=== PATIENT | male | born 1965 | race Caucasian/White ===

== ENCOUNTER 2018-06-02 06:32 | Day surgery (SDC) | payer BC ==
[2018-06-02] VITALS (14 sets, daily range): BP systolic 136–164; BP diastolic 69–114; PULSE 64–77; RESP 12–22; Ht 188 cm; Wt 93.1 kg
[~2018-06-02] VITALS: Ht 188 cm; Wt 93.1 kg
[~2018-06-02 06:32] MED LIST: CEFAZOLIN 2 GM/50 ML (PMX) 50 ML IVPB SCH; SOD CHLORIDE 0.9% 1,000 ML IV SCH
[2018-06-02] MEDS ORDERED: BUPIVACAINE 0.25% (MPF) 30 ML INJ ONE (08:38)
[2018-06-02] MEDS ORDERED: POLYMYXIN/BACITRACIN 1L IRRIG ONE (08:38)
--- NOTE | 2018-06-02 08:54 | PREAC ---
Date/Time of Note Date/Time of Note DATE: 06/02/18 TIME: 08:52 Anesthesia Eval and Record Evaluation Time Pre-Procedure Interview DATE: 06/02/18 TIME: 08:52 Age 53 Sex male NPO: 8 hrs Preoperative diagnosis Lt inguinal Hernia Planned procedure Lt inguinal Hernia repair Past Medical History Past Medical History: None Surgery & Anesthesia Issues No known issue Meds Anticoagulation: No Beta Hortensia within 24 hr: No Reason Beta Hortensia not given: Pt. not on B-Hortensia No Active Prescriptions or Reported Meds Current Medications Cefazolin Sodium/ Dextrose 50 ml @ 100 mls/hr ONCE IVPB ; Start 06/02/18 at 06:00; Stop 06/02/18 at 13:00 Sodium Chloride 1,000 ml @ 75 mls/hr [id number] IV ; Start 06/02/18 at 06:00; Stop 06/02/18 at 23:00 Meds reviewed: Yes Allergies Coded Allergies: No Known Allergies (Verified Allergy, Unknown, 06/02/18) Allergies Reviewed: Yes Labs/Studies Labs Reviewed: Reviewed by anesthesiologist test: N/A Studies: ECG Pre-procedure Exam Last vitals Vital Signs Date Temp Pulse Resp B/P (MAP) Pulse Ox O2 O2 Flow FiO2 Time Delivery Rate 06/02/18 98.0 71 16 136/95 96 Room Air 07:35 (109) Airway: Adequate mouth opening, Adequate thyromental dist Mallampati: Mallampati II Teeth: Normal Lung: Normal Heart: Normal ASA Physical Status ASA physical status: 2 Emergency: None Planned Anesthetic General/MAC: LMA Planned Pain Management Parenteral pain med, Local by surgeon Pre-operative Attestations Prior to commencing anesthesia and surgery, the patient was re-evaluated, there was verification of: *The patient's identity *The results of appropriate recent lab work and preoperative vital signs *The above evaluation not changing prior to induction *Anesthetic plan, risk benefits, alternative and complications discussed with patient/family; questions answered; patient/family understands, accepts and wishes to proceed. YUE SANCHEZ MD Jun 02, 2018 08:54
[2018-06-02] MEDS ORDERED: MIDAZOLAM 1 MG/ML 2 ML INJ ONE (08:57)
[2018-06-02] MEDS ORDERED: LIDOCAINE 2% (SDV) 5 ML INJ ONE (10:05)
[2018-06-02] MEDS ORDERED: CEFAZOLIN 1 GM INJ ONE (10:05)
[2018-06-02] MEDS ORDERED: NEOSTIGMINE 3 MG/3 ML SYRINGE ONE (10:05)
[2018-06-02] MEDS ORDERED: GLYCOPYRROLATE 0.4 MG INJ ONE (10:05)
[2018-06-02] MEDS ORDERED: ROCURONIUM 50 MG INJ ONE (10:05)
[2018-06-02] MEDS ORDERED: PROPOFOL 20 ML ONE (10:05)
[2018-06-02] MEDS ORDERED: ONDANSETRON 4 MG INJ ONE (10:06)
--- NOTE | 2018-06-02 10:11 | OPR ---
Date/Time of Note Date/Time of Note DATE: 06/02/18 TIME: 10:06 Operative Report Procedure Date: Jun 02, 2018 Preoperative Diagnosis incarcerated large left inguinal hernia Postoperative Diagnosis same Operation/Procedure Performed 1. open incarcerated large left inguinal hernia repair with large ultrapro plug mesh 2. therapeutic injection of subcutaneous local anesthesia Surgeon see signature line Pillow Filler none Anesthesia Type: general Estimated Blood Loss: 0 - 10 ml's Transfusion none Specimen hernia sac Grafts/Implants none Complications none Pt Condition Post Procedure: stable Indications This is a 53-year-old male with a very large incarcerated left inguinal hernia. He requires surgical repair. Risks alternatives benefits and percent were discussed the patient. Patient expressed understanding and consents to the operation. Procedure Description Patient is taken to the OR and prepped and draped in usual sterile fashion. Surgical time was performed. IV antibiotics given. Left inguinal oblique incision was made with a 10 blade. Dissection with cautery was carried onto the axillary fascia. Externally fascia was opened with a 15 blade. The external fascia was attenuated and weakened. Very large incarcerated indirect hernia was identified. Extensive lysis of adhesions was performed and the hernia was then manually reduced. The very large indirect hernia sac is identified. The hernia sac was opened and all contents were then reduced manually. 0 Vicryl suture ligature was placed at the base of the hernia sac and the hernia sac was emptied of all of its contents prior to suture ligature placement. Excess hernia sac was then excised and sent for specimen. The disc portion was then used to bolster the hernia defect running 0 Prolene from the pubic tubercle along the shelving single limit. Superiorly the disc is secured to the internal oblique with interrupted 3-0 Vicryl. Onlay mesh was secured in a similar fashion with a running 0 Prolene from the pubic tubercle along the shelving is a single limit. Straps are created reapproximate around the cord structures to re-create the inguinal ring with interrupted 0 Prolene. Onlay mesh was secured to enter oblique with interrupted 3-0 Vicryl. Externally fascia is closed with running 3-0 Vicryl. Multiple interrupted 3-0 Vicryl were used to close Ash's fascia. Skin was closed using inzorb observable skin stapler. Therapeutic contains local anesthesia injected at the incision site. Dry dressings were applied. Alfredito ZIMMER Jun 02, 2018 10:11
--- NOTE | 2018-06-02 10:22 | PAC ---
Date/Time of Note Date/Time of Note DATE: 06/02/18 TIME: 10:21 Post-Anesthesia Notes Post-Anesthesia Note Last documented vital signs Vital Signs Date Temp Pulse Resp B/P (MAP) Pulse Ox O2 O2 Flow FiO2 Time Delivery Rate 06/02/18 98.0 71 16 136/95 96 Room Air 07:35 (109) Activity: WNL Respiratory function: WNL Cardiovascular function: WNL Mental status: Baseline Pain reasonably controlled: Yes Hydration appropriate: Yes Nausea/Vomiting absent: Yes Comments BP:112/45, P:78, Spo2:100%, T:98,8 YUE SANCHEZ MD Jun 02, 2018 10:22
[2018-06-02] MEDS ORDERED: METOCLOPRAMIDE 10 MG INJ IV PRN (10:30)
[2018-06-02] MEDS ORDERED: DIPHENHYDRAMINE 50 MG INJ IV PRN (10:30)
[2018-06-02] MEDS ORDERED: ONDANSETRON 4 MG INJ IV PRN (10:30)
[2018-06-02] MEDS ORDERED: HYDROmorphONE 1 MG/5 ML IV SYRINGE IV PRN (10:30)
[2018-06-02] MEDS ORDERED: MEPERIDINE 25 MG INJ IV PRN (10:30)
[2018-06-02] MEDS ORDERED: FENTAnyl 50 MCG/ML VIAL IV PRN (10:30)
[2018-06-02] MEDS ORDERED: HYDROCODONE/APAP (5/325) TAB PO ONE (10:30)
[2018-06-02] MEDS: HYDROmorphONE 1 MG/5 ML IV SYRINGE IV PRN ×2 (10:33→10:44)
== END 2018-06-02 16:15 | disposition home or self-care (01) ==
LOC: SDS 06:32
PROVIDERS: ATTEND Surgery
DX: K40.30 Unilateral inguinal hernia, with obstruction, without gangrene, not specified as recurrent (principal)
CPT/HCPCS: 49507; 88302; C1781; J0690; J1170; J2175; J2250; J2405; J2710; J3010; Z7512; Z7610

== ENCOUNTER 2018-08-15 10:26 | Day surgery (SDC) | payer BC ==
[2018-08-14 14:57] VITALS: BMI 26.4
[2018-08-15] VITALS (11 sets, daily range): BP systolic 141–161; BP diastolic 76–102; PULSE 58–71; RESP 14–20; Ht 188 cm; Wt 96.8 kg
[~2018-08-15] VITALS: Ht 188 cm; Wt 96.8 kg
--- NOTE | 2018-08-15 11:36 | RADRPT ---
Vent Rate: 63 bpm RR Interval: 948 msec [place] Interval: 164 msec QRS Duration: 88 msec QT Interval: 407 msec QTC Interval: 418 msec P-R-T [place]: 63 - 70 - 70 degrees Sinus rhythm...normal P axis, V-rate 50- 99 ST elev, probable normal early repol pattern...ST elevation, age<55 Electronically Signed By: Vinayak Liang
[2018-08-15] MEDS ORDERED: CEFAZOLIN 2 GM/50 ML (PMX) 50 ML IVPB ONE (12:00)
[2018-08-15] MEDS ORDERED: SOD CHLORIDE 0.9% 1,000 ML IV SCH (12:00)
[2018-08-15] MEDS ORDERED: NEOSTIGMINE 3 MG/3 ML SYRINGE ONE (12:32)
[2018-08-15] MEDS ORDERED: PROPOFOL 20 ML ONE (12:32)
[2018-08-15] MEDS ORDERED: ROCURONIUM 50 MG INJ ONE (12:32)
[2018-08-15] MEDS ORDERED: MIDAZOLAM 1 MG/ML 2 ML INJ ONE (12:32)
[2018-08-15] MEDS ORDERED: CEFAZOLIN 1 GM INJ ONE (12:32)
[2018-08-15] MEDS ORDERED: GLYCOPYRROLATE 0.4 MG INJ ONE (12:32)
[2018-08-15] MEDS ORDERED: FENTAnyl 50 MCG/ML VIAL ONE (12:32)
[2018-08-15] MEDS ORDERED: DEXAMETHASONE 4 MG/ML 5 ML INJ ONE (12:33)
[2018-08-15] MEDS ORDERED: ONDANSETRON 4 MG INJ ONE (12:33)
[2018-08-15] MEDS ORDERED: BUPIVACAINE 0.25% (MPF) 30 ML INJ ONE (13:02)
--- NOTE | 2018-08-15 13:06 | PREAC ---
Date/Time of Note Date/Time of Note DATE: 08/15/18 TIME: 13:03 Anesthesia Eval and Record Evaluation Time Pre-Procedure Interview DATE: 08/15/18 TIME: 13:03 Age 53 Sex male NPO: 8 hrs Preoperative diagnosis RIGHT INGUINAL HERNIA Planned procedure OPEN RIGHT INGUINAL HERNIA REPAIR WITH MESH Past Medical History Past Medical History: None Surgery & Anesthesia Issues No known issue Meds Anticoagulation: No Beta Hortensia within 24 hr: No Reason Beta Hortensia not given: Pt. not on B-Hortensia No Active Prescriptions or Reported Meds Current Medications Sodium Chloride 1,000 ml @ 75 mls/hr [id number] IV Last administered on 08/15/18at 11:34; Admin Dose 75 MLS/HR; Start 08/15/18 at 12:00; Stop 08/16/18 at 01:19 Meds reviewed: Yes Allergies Coded Allergies: No Known Allergies (Verified Allergy, Unknown, 08/15/18) Allergies Reviewed: Yes Labs/Studies Labs Reviewed: Reviewed by anesthesiologist Result Diagram: 08/15/18 1137 08/15/18 1137 Laboratory Tests 08/15/18 11:37 test: N/A Pre-procedure Exam Last vitals Vital Signs Date Temp Pulse Resp B/P (MAP) Pulse Ox O2 O2 Flow FiO2 Time Delivery Rate 08/15/18 98.0 71 16 143/97 98 Room Air 11:37 (112) Airway: Adequate mouth opening, Adequate thyromental dist Mallampati: Mallampati II Teeth: Abnormal (CHIPPED UPPER INCISORS) Lung: Normal Heart: Normal ASA Physical Status ASA physical status: 1 Emergency: None Planned Anesthetic General/MAC: ETT Nerve block: TAP (right) Pre-operative Attestations Prior to commencing anesthesia and surgery, the patient was re-evaluated, there was verification of: *The patient's identity *The results of appropriate recent lab work and preoperative vital signs *The above evaluation not changing prior to induction *Anesthetic plan, risk benefits, alternative and complications discussed with patient/family; questions answered; patient/family understands, accepts and wishes to proceed. Samuel Payne M.D. Aug 15, 2018 13:06
[2018-08-15] MEDS ORDERED: FENTAnyl 50 MCG/ML VIAL IV PRN ×3 (13:30)
[2018-08-15] MEDS ORDERED: TRIMETHOBENZAMIDE 100 MG/ML VIAL IM PRN (13:30)
[2018-08-15] MEDS ORDERED: EPHEDrine 25 MG/5 ML SYG IV PRN (13:30)
[2018-08-15] MEDS ORDERED: LABETALOL HCL 20MG INJ IV PRN (13:30)
[2018-08-15] MEDS ORDERED: IPRATROPIUM (NEB) 0.5 MG/2.5 ML AMP HHN PRN (13:30)
[2018-08-15] MEDS ORDERED: ONDANSETRON 4 MG INJ IV PRN (13:30)
[2018-08-15] MEDS ORDERED: HYDROmorphONE 1 MG/5 ML IV SYRINGE IV PRN ×3 (13:30)
[2018-08-15] MEDS ORDERED: OXYCODONE/ACETAMINOPHEN (5/325) TAB PO PRN ×2 (13:30)
[2018-08-15] MEDS ORDERED: hydrALAzine 20 MG INJ IV PRN (13:30)
[2018-08-15] MEDS ORDERED: DIPHENHYDRAMINE 50 MG INJ IV PRN (13:30)
[2018-08-15] MEDS ORDERED: MEPERIDINE 25 MG INJ IV PRN (13:30)
[2018-08-15] MEDS ORDERED: MIDAZOLAM 1 MG/ML 2 ML INJ IV PRN (13:30)
[2018-08-15] MEDS ORDERED: ROPIVACAINE 0.5 % 30 ML VIAL ONE (13:30)
[2018-08-15] MEDS ORDERED: ALBUTEROL 0.083% (NEB) 2.5 MG/3 ML AMP HHN PRN (13:30)
[2018-08-15] MEDS ORDERED: POLYMYXIN/BACITRACIN 1L IRRIG IRR ONE (13:52)
[2018-08-15] MEDS ORDERED: POLYMYXIN/BACITRACIN 1L IRRIG ONE (14:03)
--- NOTE | 2018-08-15 14:22 | OPR ---
Date/Time of Note Date/Time of Note DATE: 08/15/18 TIME: 14:17 Operative Report Procedure Date: Aug 15, 2018 Preoperative Diagnosis incarcerated right inguinal hernia Postoperative Diagnosis same Operation/Procedure Performed open right incarcerated inguinal hernia repair with large ultrapro hernia system mesh Surgeon see signature line Inpatient Auditor none Anesthesia Type: general Estimated Blood Loss: 0 - 10 ml's Transfusion none Specimen none Grafts/Implants none Complications none Pt Condition Post Procedure: stable Indications This is a 53-year-old male with a very large right incarcerated inguinal hernia. He request surgical repair. Risks alternatives benefits and personal were discussed the patient. Patient expressed understanding and consents to the operation. Procedure Description Patient is taken to the OR and prepped and draped in usual sterile fashion. Surgical time was performed. IV antibiotics given. Right inguinal oblique incision made with a 10 blade. Dissection with cautery skin onto the fascia. Externally fascia up with a 15 blade. This incision extended medial fairly lateral sparely with Metzenbaum scissors. Cord structures identified encircled with a Franklin drain. Very large indirect incarcerated inguinal hernia was identified. Lysis of adhesions was performed and this large incarcerated hernia is then reduced. Hernia defect was then bolstered with the disc portion of the ultra pro hernia system mesh. The disc is secured in place the running Prolene from the pubic tubercle along the shelving single limit. Superiorly the disc is secured to enter oblique with interrupted 3-0 Vicryl. Onlay mesh was secured in a similar fashion with a running 0 Prolene from the pubic tubercle along the shelving of the inguinal ligament. Straps are created reapproximate around the cord structures and secured with interrupted 0 Prolene to recreate the inguinal ring. Onlay mesh secured to enter oblique with interrupted 3-0 Vicryl. Sterilely fascia is closed with running 3-0 Vicryl. Ash's fascia was closed with interrupted 0 Vicryl. Skin is closed using inzorb observable skin stapler. A tap block was provided with anesthesia at the beginning the case. Steri- Strips and dry dressings were applied. Alfredito ZIMMER Aug 15, 2018 14:22
[2018-08-15] MEDS ORDERED: HYDROCODONE/APAP (5/325) TAB PO ONE (14:30)
== END 2018-08-15 17:25 | disposition home or self-care (01) ==
LOC: SDS 10:26
PROVIDERS: ATTEND Surgery
DX: K40.30 Unilateral inguinal hernia, with obstruction, without gangrene, not specified as recurrent (principal)
CPT/HCPCS: 49507; 71045; 80053; 85025; 85610; 85730; 93005; C1781; J0690; J1100; J2250; J2405; J2795; J3010; Z7512; Z7610; J2710